=== PATIENT | male | born 1980 | race Caucasian/White ===

== ENCOUNTER 2018-08-22 00:41 | Emergency (ER) | payer BC ==
[2018-08-22] MEDS ORDERED: Bacitracin Oint 1 GM U/D Packet TOP ONE (00:55)
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
--- NOTE | 2018-08-22 01:50 | CT ---
INDICATION: Fall, head injury. TECHNIQUE: CT head without contrast. COMPARISON: None. FINDINGS: CSF spaces: Within normal limits for age. Brain parenchyma and extra-axial spaces: The hector-white differentiation is normal. No sign of mass, hemorrhage, or midline shift. No extra-axial fluid collection. Skull base and calvarium: The visualized paranasal sinuses and mastoid air cells demonstrate no acute or significant findings. The visualized orbits are grossly unremarkable. No skull fractures. IMPRESSION: Unremarkable noncontrast head CT. Please note that all CT scans at this facility use dose modulation, iterative reconstruction, and/or weight-based dosing when appropriate to reduce radiation dose to as low as reasonably achievable. Dictated by Hernesto Odonnell MD @ Aug 22 2018 1:44AM Signed by Dr. Hernesto Odonnell @ Aug 22 2018 1:48AM
[2018-08-22] MEDS ORDERED: Acetaminophen 325 MG Tab PO ONE (01:53)
== END 2018-08-22 02:14 | disposition home or self-care (01) ==
LOC: MW.ED 00:41
DX: S00.03XA Contusion of scalp, initial encounter (principal); S00.412A Abrasion of left ear, initial encounter; F10.920 Alcohol use, unspecified with intoxication, uncomplicated; W22.8XXA Striking against or struck by other objects, initial encounter
CPT/HCPCS: 70450; 82962; 99283; A9270

== ENCOUNTER 2019-08-07 16:37 | Emergency (ER) | payer BC, OTHER ==
[2019-08-07] MEDS ORDERED: Sodium Chloride 0.9% 1,000 ML IV ONE (16:53)
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
[2019-08-07] MEDS ORDERED: Iopamidol 755 MG/ML 500 ML Multipack Bottle IVPUSH STA (17:11)
[2019-08-07 17:21] LABS: BLOOD UREA NITROGEN,BUN 12 mg/dL (7.0-18.0); CARBON DIOXIDE,CO2 26.1 mmol/L (21.0-32.0); CHLORIDE,CL 100 mmol/L (98-107); GLUCOSE RANDOM 96 mg/dL (74-106); POTASSIUM,K 3.5 mmol/L (3.5-5.1); SODIUM,NA 136 mmol/L (136-148)
--- NOTE | 2019-08-07 17:26 | CT ---
Indication: Neck pain. Trauma Technique: Noncontrast axial CT of the cervical spine with coronal and sagittal reformats are provided. No comparisons. Findings: The overall stature, alignment of the cervical spine is within normal limits. No convincing evidence of suspicious bony fragments narrowing the central canal or neural foramina. Prevertebral soft tissues, cervical airway, dens and lateral masses are within normal limits. Mild scattered degenerative changes of the cervical spine. Impression: 1. No convincing radiographic evidence of acute osseous injury. 2. Mild scattered degenerative changes of the cervical spine. Please note that all CT scans at this facility use dose modulation, iterative reconstruction, and/or weight-based dosing when appropriate to reduce radiation dose to as low as reasonably achievable. Dictated by Teodoro Elmore MD @ Aug 07 2019 5:23PM Signed by Dr. Teodoro Elmore @ Aug 07 2019 5:25PM
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
== END 2019-08-07 18:28 | disposition home or self-care (01) ==
LOC: MW.ED 16:37
DX: S20.212A Contusion of left front wall of thorax, initial encounter (principal); I10 Essential (primary) hypertension; Z79.899 Other long term (current) drug therapy; V89.2XXA Person injured in unspecified motor-vehicle accident, traffic, initial encounter; Y92.410 Unspecified street and highway as the place of occurrence of the external cause
CPT/HCPCS: 36415; 71260; 72125; 74177; 80053; 85025; 85610; 93005; 99285; J7030; Q9967; 99283